=== PATIENT | female | born 1990 | race Caucasian/White ===

== ENCOUNTER 2024-04-11 09:06 | Inpatient (IN) ==
--- NOTE | 2024-04-11 09:25 | History & Physical Report ---
Date of Service April 11, 2024 Assessment & Plan (1) Supervision of normal first : Plan: No active labor at this time - will monitor at L&D, as has not been on toco long enough to determine. Will keep NPO. History of Present Illness Chief Complaint: r/o labor Primary Care Provider: Gagan Go MD 33yo @ 39 09/30, presented to L&D for evaluation after passing small blood clot at home and leaking fluid. + movement, not sure if she's having contractions. Obesity (BMI between 35-39 @ beginning of ) BMI 37 *Growth US @ 32 wks *Weekly NSTs @ 36wks GDM w/28wk glucola *Begin monthly Growth US's GBS poitive by urine BREECH at 36wks C/S SCHEDULED FOR 04/14/[address] SMALL AND DR. KWON ASSIST Allergies Allergy/AdvReac Type Severity Reaction Status Date / Time No Known Allergies Allergy Verified 04/06/24 09:04 Home Medications Medication Instructions Recorded Confirmed Type Saccharomyces boulardii [Probiotic 1 tab PO UD 09/02/23 04/06/24 History (S.boulardii)] docosahexaenoic acid [ DHA] 1 tab PO DAILY 09/02/23 04/06/24 History 21-iron fu-folic acid 1 tab PO DAILY 09/02/23 04/06/24 History [ Complete] acetone (urine) test (Ketone Urine #50 ea 02/11/24 04/04/24 Rx Test strips) blood-glucose meter (OneTouch #1 ea 02/11/24 04/04/24 Rx Verio Reflect Meter) blood sugar diagnostic (OneTouch #150 ea 03/08/24 04/04/24 Rx Verio test strips) lancets 33 gauge (OneTouch Delica #150 ea 03/08/24 04/04/24 Rx Plus Lancet) Patient History Medical History History of COVID-19 (2020) no hosp; resolved Gestational diabetes Diet controlled History of chicken pox Lyme disease (2019) hx- treated Surgical History S/P wisdom tooth extraction Family History Grandmother (Maternal) Breast cancer Colorectal cancer Grandmother (Paternal) Breast cancer Ovarian cancer Mother Diabetes Other Coronary heart disease Denies family history of Uterine cancer Social History Smoking Status: Never smoker Second Hand Exposure: No; Do You Dip or Chew Tobacco: No; Hx Alcohol Use: No Hx Substance Use: No Preferred Language: [place] Communication Ability: Effective Milk Wagon Driver Required: No Beliefs That Will Affect Care: None marital status: marital status details: Nixon Roque (35) [phone] Current Living Situation: Spouse Current Living Situation Comment: lives with spouse current occupational status: employed current occupation: [employer] Feels Safe at Home: Yes Assistive Devices: Contacts and Glasses Review of Systems All systems reviewed & are unremarkable except as noted in HPI & below Physical Exam Physical Exam: FHT Cat 1 [place] rare SVE FT/50/-2 - difficult exam sterile spec exam: no leaking, no pooling, no valsalva, neg nitrizine, not enough fluid for ferning slide. Limited bedside ultrasound - Breech, adequate appearing amniotic fluid - 3cm in one quadrant (others not measured) Constitutional: WD/WN, vitals as above Respiratory: normal respiratory effort, lungs clear to auscultation no respiratory distress Cardiovascular: Rate/Rhythm: regular rate and regular rhythm Gastrointestinal (Abdomen): Inspection/Auscultation: abdomen normal to inspection Percussion/Palpation: abdomen soft; abdomen nontender Gravid. No s/s chorio or abruption. Skin: no rashes, warm and dry Psychiatric: A+Ox3, euthymic affect Results & Data Vital Signs (Past 12 Hours) Vital Signs Pulse BP 04/11/24 09:11 122 H 133/80 Coding Level of Care Code None Diagnoses Supervision of normal first Z34.00
--- NOTE | 2024-04-11 12:04 | History & Physical Bridge Note ---
Date of Service April 11, 2024 History & Physical Bridge Note I have examined the patient, reviewed the History & Physical and in the interval since the performance of the History & Physical I have noted the following changes of clinical significance: no changes noted. FHT Cat 1 tracing, toco difficult to monitor contractions - no labor pattern, however uterine irritable with high frequency/low amplitude activity. Offered patient to perform section today. She agreed - she'd prefer to not wait until , as she is already 39 3/7 today and nervous she will go into labor prior to her scheduled date. We reviewed informed consent, questions answered. Will plan for section today.
[2024-04-11 13:00] LABS: Hematocrit (blood only) 39.4 % (37.0-47.0); Hemoglobin 13.2 g/dl (12.0-16.0); Mean Corpuscular Hemoglobin 28.7 pg (25.0-34.0); Mean Corpuscular Hgb Conc 33.5 g/dL (32.0-36.0); Mean Corpuscular Volume 85.7 fL (80.0-100.0); Mean Platelet Volume 11.4 fL (9.4-12.4); Platelet Count 280 K/uL (130-400); RDW Coefficient of Variation 14.3 % (11.5-14.5); RDW Standard Deviation 44.4 fL (36.4-46.3); White Blood Count 11.86 K/ul (4.8-10.8)
[2024-04-11] MEDS: LACTATED RINGER'S 1,000 ML IV SCH ×2 (13:19→14:17)
[2024-04-11] MEDS: ACETAMINOPHEN 500 MG TAB PO SCH (16:31)
[2024-04-11] MEDS: ceFAZolin 3000MG 3,000 MG/72.5 ML BAG IV SCH (17:03)
[2024-04-11] MEDS ORDERED: MoRPHine SULFATE PF 1 MG/ML 10 ML AMP/VIAL ONE (17:18)
[2024-04-11] MEDS ORDERED: NALBUPHINE HCL INJ 10 MG/ML AMP IV PRN (17:45)
[2024-04-11] MEDS ORDERED: SODIUM CHLORIDE 0.9% 1,000 ML IV SCH (17:45)
[2024-04-11] MEDS ORDERED: MoRPHine SULFATE 2 MG/ML CARP IV PRN (17:45)
[2024-04-11] MEDS ORDERED: LACTATED RINGER'S 500 ML IV PRN (17:45)
[2024-04-11] MEDS ORDERED: ONDANSETRON INJ 2 MG/ML 2 ML VIAL IV PRN ×2 (17:45→18:45)
[2024-04-11] MEDS ORDERED: ePHEDrine sulfate 50 MG/ML AMP IV PRN (17:45)
[2024-04-11] MEDS ORDERED: NO NARCOTICS OR SEDATIVES SCH (17:45)
[2024-04-11] MEDS ORDERED: MEPERIDINE HCL 25 MG/ML CARP/VIAL IV PRN (17:45)
[2024-04-11] MEDS ORDERED: HYDROmorphone INJ 0.5 MG/0.5 ML SYR IV PRN (17:45)
[2024-04-11] MEDS ORDERED: DC INTRASPINAL MORPHINE SCH (17:45)
[2024-04-11] MEDS ORDERED: MoRPHine SULFATE PF 1 MG/ML 10 ML AMP/VIAL INT SPINAL ONE (17:45)
[2024-04-11] MEDS ORDERED: NALOXONE HCL 0.4 MG/1 ML VIAL/CARP IV PRN (17:45)
[2024-04-11] MEDS ORDERED: DROPERIDOL 5 MG/2 ML VIAL IV PRN (17:45)
[2024-04-11] MEDS ORDERED: NALOXONE HCL 1 MG in SODIUM CHLORIDE 0.9% 1,000 ML IV PRN (17:45)
[2024-04-11] MEDS ORDERED: KETOROLAC 30 MG/ML VIAL IV PRN (17:45)
[2024-04-11] MEDS ORDERED: diphenhydrAMINE 50 MG/ML VIAL IV PRN (17:45)
[2024-04-11] MEDS ORDERED: NALOXONE HCL 0.08 MG in SYRINGE 1.8 ML IV PRN (17:45)
[2024-04-11] MEDS: CITRIC ACID/SODIUM CITRATE 15 ML UDC PO SCH (17:54)
[2024-04-11] MEDS ORDERED: PHENYLEPHRINE HCL 25 MG/250 ML NSS IV ONE (18:14)
[2024-04-11] MEDS ORDERED: OXYTOCIN 10 UNITS/ML VIAL ONE (18:14)
[2024-04-11 18:30] LABS: Base Excess Cord Arterial Bld -3.8 mEq/L (-9-1.8); Base Excess Cord Venous Blood -3.7 mEq/L (-7.7-1.9); CO2 Cord Arterial Blood 61 mmHg (39.1-73.5); Cord Venous Blood HCO3 24 mmol/L (18.4-26.8); Cord Venous Blood PCO2 50 mmHg (30.4-57.2); Cord Venous Blood PO2 < 20 mmHg (14.1-43.3); Cord Venous Blood pH 7.28 (7.20-7.44); HCO3 Cord Arterial Blood 25 mmol/L (19.7-28.5); O2 Saturation Cord Venous Bld < 60.0 % (<68); Oxygen Sat Cord Arterial Blood < 60.0 % (<60); PO2 Cord Arterial Blood < 20 mmHg (4.1-31.7); pH Cord Arterial Blood 7.22 (7.1-7.38)
--- NOTE | 2024-04-11 18:43 | Operative Report ---
Post Operative Report Pre & Post Diagnosis Operation Date: 04/11/24 15:00 Pre-Op Diagnosis: Breech Post-Op Diagnosis: Same;Delivery of a live female child at 1745 I identified the patient and participated in the time-out.: Yes Procedure Operation Date: 04/11/24 15:00 Actual Procedures p Primary low transverse Section in LD(Bilateral) - Saniya Lanza DO Surgeon Saniya Lanza DO [employer] Dr Berry, PGY1 Quantitative Blood Loss (QBL) 484 Findings Consistent with Post-Op Diagnosis Viable female , Apgars 9/9. Weight 8#11oz. Normal appearing uterus, tubes, ovaries. Specimens placenta, cord blood, cord gas Drains ham clear yellow Anesthesia Type Spinal Complications none Disposition Accompanied Patient To Recovery: Yes Indications 33yo @ 39 3/7, breech presentation Description of Procedure The patient was seen in her labor and delivery room, risks benefits and alternat petr to surgery were reviewed. Informed consent obtained. Questions were answered. She was taken to the operating room, spinal anesthesia was administered. She was then prepared and draped in the usual sterile fashion in the supine position with a leftward tilt. Timeout was confirmed. A Pfannenstiel skin incision was made with a scalpel, and carried through to the underlying layer of fascia. Fascia was nicked at midline, and this incision was extended bilaterally. The superior aspect of the fascial incision was grasped with Lloyd clamps x2, elevated off the underlying rectus abdominis muscles, and dissected sharply and bluntly. In similar fashion, the inferior aspect of the fascial incision was dissected. The rectus abdominis muscles were , and the peritoneum was entered b luntly digitally. This was extended bilaterally. The bladder flap was taken down carefully using Metzenbaum scissors. Using a new scalpel, a low transverse uterine incision was created. Clear amnio tic fluid noted. The infant was delivered from a breech presentation. The buttocks delivered, followed by legs, torso. Medial sweep for delivery of arms and delivery of head. Nuchal x 2, easily reduced. Spontaneous cry on the field. The cord was doubly clamped and cut, and the was handed off to the waiting smoke room operator. A segment was retained for cord gases. Cord blood was obtained. The placenta was delivered spontaneously intact. The uterus was exteriorized, and cleared of all clots and debris. The hysterotomy incision was reapproximated using 0 Vicryl in a running locked stitch. A second layer of the same suture was used to imbricate the incision. Posterior uterus was evaluated and normal. The uterus was returned to the abdomen, and gutters were cleared of clots and de bris. Excellent hemostasis was observed. The fascial incision was reapproximated using 0 Vicryl in a running stitch. The subcutaneous tissue was irrigated, and reapproximated using 2-0 plain gut in a running stitch. The skin was reapproximated using 4-0 Vicryl in a running subcuticular stitch. Steri-Strips and a bandage were applied. The patient tolerated the procedure well, and will be taken to the recovery area in stable and good condition. I attest to the content of the Intraoperative Record and any orders documented therein. Any exceptions are noted below. OB Procedure Charges 89385
[2024-04-11] MEDS ORDERED: MAGNESIUM HYDROXIDE SUSP 30 ML UDC PO PRN (18:45)
[2024-04-11] MEDS ORDERED: LACTATED RINGER'S 1,000 ML IV SCH (18:45)
[2024-04-11] MEDS ORDERED: HYDROCORTISONE ACETATE 25 MG SUPP PR PRN (18:45)
[2024-04-11] MEDS ORDERED: CALCIUM CARBONATE 500 MG CHEWABLE TAB PO PRN (18:45)
[2024-04-11] MEDS ORDERED: BENZOCAINE 20% SPRY 85 APPLN/85 GM CAN EXT PRN (18:45)
[2024-04-11] MEDS ORDERED: SENNA 8.6 MG TAB PO PRN (18:45)
[2024-04-11] MEDS ORDERED: DIPHTHER/TETAN/PERTUS Vaccine (Tdap, Adol/Adult) 0.5mL IM ONE (18:45)
--- NOTE | 2024-04-11 20:32 | Anesthesiology Progress Note ---
Date of Service April 11, 2024 Anesthesia Post Procedure Vital Signs Vital Signs: Temp Pulse Resp BP Pulse Ox 04/11/24 20:27 100 04/11/24 20:27 75 04/11/24 20:22 100 04/11/24 20:22 82 04/11/24 20:22 135/67 04/11/24 20:17 100 04/11/24 20:17 72 04/11/24 20:12 100 04/11/24 20:12 77 04/11/24 20:12 127/64 04/11/24 20:07 100 04/11/24 20:07 80 04/11/24 20:02 100 04/11/24 20:02 87 04/11/24 20:02 123/59 L 04/11/24 19:57 100 04/11/24 19:57 88 04/11/24 19:52 100 04/11/24 19:52 88 04/11/24 19:52 132/65 04/11/24 19:47 100 04/11/24 19:47 88 04/11/24 19:45 92 04/11/24 19:45 91 H 04/11/24 19:42 100 04/11/24 19:42 71 04/11/24 19:42 123/62 04/11/24 19:37 100 04/11/24 19:37 73 04/11/24 19:33 18 04/11/24 19:33 18 04/11/24 19:33 71 04/11/24 19:33 124/61 04/11/24 19:32 100 04/11/24 19:32 71 04/11/24 19:27 100 04/11/24 19:27 87 04/11/24 19:23 80 04/11/24 19:23 115/70 04/11/24 19:22 100 04/11/24 19:22 73 04/11/24 19:18 18 04/11/24 19:17 100 04/11/24 19:17 79 04/11/24 19:13 75 04/11/24 19:13 124/69 04/11/24 19:12 100 04/11/24 19:12 74 04/11/24 19:07 99 04/11/24 19:07 93 H 04/11/24 19:03 20 04/11/24 19:02 100 04/11/24 19:02 93 H 04/11/24 19:02 118/66 04/11/24 18:57 100 04/11/24 18:57 92 H 04/11/24 18:53 20 04/11/24 18:53 104 H 04/11/24 18:53 137/61 04/11/24 18:52 100 04/11/24 18:52 96 H 04/11/24 18:47 100 04/11/24 18:47 101 H 04/11/24 18:43 20 04/11/24 18:43 100 H 04/11/24 18:43 169/78 H 04/11/24 18:42 100 04/11/24 18:42 92 H 04/11/24 18:37 100 04/11/24 18:37 100 H 04/11/24 18:33 36.6 C 20 04/11/24 18:33 74 04/11/24 18:33 117/76 04/11/24 18:32 99 04/11/24 18:32 80 04/11/24 15:01 78 04/11/24 15:01 139/71 04/11/24 09:37 37.1 C 20 04/11/24 09:11 122 H 133/80 Transfer of Care Handoff Completed per policy Notes Mental Status: alert / awake / arousable and participated in evaluation Nausea / Vomiting: adequately controlled Pain: adequately controlled Airway Patency, RR, SpO2: stable & adequate BP & HR: stable & adequate Hydration State: stable & adequate Neuraxial Anesthesia: was administered and sensory block is resolving Anesthetic Complications: no major complications apparent and Pt Satisfied with anesthetic care
[2024-04-11] MEDS: OXYTOCIN 30 UNITS/LR 1,003 ML IV SCH (20:36)
[2024-04-11] MEDS ORDERED: SODIUM CHLORIDE 0.9% 250 ML IV PRN (20:52)
[2024-04-11] MEDS: DOCUSATE SODIUM 100 MG CAP PO SCH (22:50)
[2024-04-11] MEDS: SIMETHICONE 80 MG CHEW PO SCH (22:51)
[2024-04-11] MEDS: ACETAMINOPHEN 325 MG TAB PO SCH (22:52)
[2024-04-11] MEDS: IBUPROFEN 600 MG TAB PO SCH (22:52)
[2024-04-12 06:20] LABS: Basophils # (auto) 0.02 K/uL (0.00-0.20); Basophils % (auto) 0.1 %; Eosinophils # (auto) 0.08 K/uL (0.00-0.50); Eosinophils % (auto) 0.6 %; Hematocrit (blood only) 32.2 % (37.0-47.0); Hemoglobin 10.7 g/dl (12.0-16.0); Immature Granulocytes # (auto) 0.12 K/uL (0.01-0.20); Immature Granulocytes % (auto) 0.9 %; Lymphocytes # (auto) 1.89 K/uL (1.20-3.40); Lymphocytes % (auto) 14.1 %; Mean Corpuscular Hemoglobin 28.8 pg (25.0-34.0); Mean Corpuscular Hgb Conc 33.2 g/dL (32.0-36.0); Mean Corpuscular Volume 86.6 fL (80.0-100.0); Mean Platelet Volume 11.3 fL (9.4-12.4); Monocytes # (auto) 0.55 K/uL (0.11-0.59); Monocytes % (auto) 4.1 %; Neutrophils # (auto) 10.77 K/uL (1.40-6.50); Neutrophils % (auto) 80.2 %; Platelet Count 203 K/uL (130-400); RDW Coefficient of Variation 14.1 % (11.5-14.5); RDW Standard Deviation 44.6 fL (36.4-46.3); Red Blood Count 3.72 M/uL (4.20-5.40); White Blood Count 13.43 K/ul (4.8-10.8)
--- NOTE | 2024-04-12 06:53 | Obstetrical Progress Note ---
Date of Service April 12, 2024 Assessment & Plan (1) delivery delivered: Plan: 1st POD Dressing removed: wound healthy Ambulation encouraged. Encourage normal diet: Tolerating well. Admission and Anticipated Discharge Date Admission Date: April 11, 2024 Supervising Physician Co-Signing Physician Notes Resident Physician Supervision Note: I interviewed and examined the patient. Discussed with Dr. Berry and agree with findings and plan as documented in the note. Any exceptions or clarifications are listed here: POD#1 doing well. Continue routine postop care. Documented By: Saniya aLnza DO Subjective 1st POD foll LTCS for Breech No active complain Pain: Mild Ambulation : To Bathroom Lochia: Moderate Gas: Not aware; BS present Breast feeding try; occasional bottle feed Regular Ob diet: tolerating Vitals: Stable Post op Review of Systems Review of Systems: As per HPI Physical Exam Physical Exam: General: Alert and oriented. No acute distress. CV: Regular rate and rhythm. No murmurs. Respiratory: CTA bilaterally. No rhonchi, wheezes, or crackles. No increased work of breathing. Abdomen: Positive bowel sounds. Soft, nontender, and nondistended. Uterus: Fundus firm and palpable few cm below umbilicus. Bandage intact; dry Lower extremities: No deep calf pain. Saima's negative bilaterally. Results & Data Vital Signs (Past 12 Hours) Vital Signs Temp Pulse Pulse Resp BP BP Pulse Ox 04/12/24 06:06 18 98 04/12/24 05:02 18 97 04/12/24 04:00 36.8 C 73 18 111/69 98 04/12/24 04:00 18 98 04/12/24 03:03 18 98 04/12/24 02:02 18 99 04/12/24 01:03 18 98 04/12/24 00:00 18 97 04/11/24 23:00 18 98 04/11/24 22:45 04/11/24 22:45 36.7 C 89 18 117/73 98 04/11/24 22:00 18 99 04/11/24 20:57 100 04/11/24 20:57 83 04/11/24 20:52 100 04/11/24 20:52 76 04/11/24 20:47 100 04/11/24 20:47 73 04/11/24 20:42 100 04/11/24 20:42 77 04/11/24 20:37 100 04/11/24 20:37 85 04/11/24 20:33 36.9 C 18 04/11/24 20:33 98 H 04/11/24 20:33 133/68 04/11/24 20:32 100 04/11/24 20:32 84 04/11/24 20:27 100 04/11/24 20:27 75 04/11/24 20:22 100 04/11/24 20:22 82 04/11/24 20:22 135/67 04/11/24 20:17 100 04/11/24 20:17 72 04/11/24 20:12 100 04/11/24 20:12 77 04/11/24 20:12 127/64 04/11/24 20:07 100 04/11/24 20:07 80 04/11/24 20:03 18 04/11/24 20:02 100 04/11/24 20:02 87 04/11/24 20:02 123/59 L 04/11/24 19:57 100 04/11/24 19:57 88 04/11/24 19:52 100 04/11/24 19:52 88 04/11/24 19:52 132/65 04/11/24 19:47 100 04/11/24 19:47 88 04/11/24 19:45 92 04/11/24 19:45 91 H 04/11/24 19:42 100 04/11/24 19:42 71 04/11/24 19:42 123/62 04/11/24 19:37 100 04/11/24 19:37 73 04/11/24 19:33 18 04/11/24 19:33 18 04/11/24 19:33 71 04/11/24 19:33 124/61 04/11/24 19:32 100 04/11/24 19:32 71 04/11/24 19:27 100 04/11/24 19:27 87 04/11/24 19:23 80 04/11/24 19:23 115/70 04/11/24 19:22 100 04/11/24 19:22 73 04/11/24 19:18 18 04/11/24 19:17 100 04/11/24 19:17 79 04/11/24 19:13 75 04/11/24 19:13 124/69 04/11/24 19:12 100 04/11/24 19:12 74 04/11/24 19:07 99 04/11/24 19:07 93 H 04/11/24 19:03 20 04/11/24 19:02 100 04/11/24 19:02 93 H 04/11/24 19:02 118/66 04/11/24 18:57 100 04/11/24 18:57 92 H 04/11/24 18:53 20 04/11/24 18:53 104 H 04/11/24 18:53 137/61 04/11/24 18:52 100 04/11/24 18:52 96 H O2 Del Method 04/12/24 06:06 04/12/24 05:02 04/12/24 04:00 Room Air 04/12/24 04:00 04/12/24 03:03 04/12/24 02:02 04/12/24 01:03 04/12/24 00:00 04/11/24 23:00 04/11/24 22:45 Room Air 04/11/24 22:45 Room Air 04/11/24 22:00 04/11/24 20:57 04/11/24 20:57 04/11/24 20:52 04/11/24 20:52 04/11/24 20:47 04/11/24 20:47 04/11/24 20:42 04/11/24 20:42 04/11/24 20:37 04/11/24 20:37 04/11/24 20:33 04/11/24 20:33 04/11/24 20:33 04/11/24 20:32 04/11/24 20:32 04/11/24 20:27 04/11/24 20:27 04/11/24 20:22 04/11/24 20:22 04/11/24 20:22 04/11/24 20:17 04/11/24 20:17 04/11/24 20:12 04/11/24 20:12 04/11/24 20:12 04/11/24 20:07 04/11/24 20:07 04/11/24 20:03 04/11/24 20:02 04/11/24 20:02 04/11/24 20:02 04/11/24 19:57 04/11/24 19:57 04/11/24 19:52 04/11/24 19:52 04/11/24 19:52 04/11/24 19:47 04/11/24 19:47 04/11/24 19:45 04/11/24 19:45 04/11/24 19:42 04/11/24 19:42 04/11/24 19:42 04/11/24 19:37 04/11/24 19:37 04/11/24 19:33 04/11/24 19:33 04/11/24 19:33 04/11/24 19:33 04/11/24 19:32 04/11/24 19:32 04/11/24 19:27 04/11/24 19:27 04/11/24 19:23 04/11/24 19:23 04/11/24 19:22 04/11/24 19:22 04/11/24 19:18 04/11/24 19:17 04/11/24 19:17 04/11/24 19:13 04/11/24 19:13 04/11/24 19:12 04/11/24 19:12 04/11/24 19:07 04/11/24 19:07 04/11/24 19:03 04/11/24 19:02 04/11/24 19:02 04/11/24 19:02 04/11/24 18:57 04/11/24 18:57 04/11/24 18:53 04/11/24 18:53 04/11/24 18:53 04/11/24 18:52 04/11/24 18:52 Resident Activity Tracking Resident Involvement: Resident Care Provided Care Provided: OB Delivery
[2024-04-12] MEDS: PRENATAL VITAMIN 1 TAB PO SCH (10:53)
[2024-04-12] MEDS: FERROUS SULFATE 325 MG TAB PO SCH (10:54)
[2024-04-12] MEDS ORDERED: diphenhydrAMINE 50 MG/ML VIAL IV PRN (11:45)
[2024-04-12] MEDS ORDERED: oxyCODONE HCL IR 5 MG TAB (IMMEDIATE RELEASE) PO PRN (11:45)
[2024-04-12] MEDS ORDERED: diphenhydrAMINE Capsule 25 MG CAP PO PRN (11:45)
[2024-04-12] MEDS ORDERED: HYDROmorphone INJ 0.5 MG/0.5 ML SYR IV PRN (11:45)
[2024-04-12] MEDS ORDERED: PROMETHAZINE 12.5 MG/50.5 ML BAG IV PRN (11:45)
[2024-04-12] MEDS: bisacodyL 5 MG TABEC PO SCH (20:35)
[2024-04-12 22:51] VITALS: RESP 18; TEMP 98.1
[2024-04-13 06:59] LABS: Hematocrit (blood only) 31.5 % (37.0-47.0); Hemoglobin 10.2 g/dl (12.0-16.0)
--- NOTE | 2024-04-13 07:25 | Obstetrical Progress Note ---
Date of Service April 13, 2024 Assessment & Plan (1) delivery delivered: Plan: 2nd POD Wound healthy Ambulation encouraged. Encourage normal diet: Tolerating well. Discharge today Admission and Anticipated Discharge Date Admission Date: April 11, 2024 Supervising Physician Co-Signing Physician Notes Resident Physician Supervision Note: I was present with [Name of resident] during the history and exam. I discussed the case with the resident and agree with the findings and plan as documented in the note. Any exceptions or clarifications are listed here: [None] Documented By: Julia Fermin MD, FACOG Subjective 2nd POD foll LTCS for Breech No active complain Pain: Mild Ambulation done Lochia: Mild Passed gas ; feels better in belly Breast feeding try; occasional bottle feed Regular Ob diet: tolerating Vitals: Stable Post op Review of Systems Review of Systems: As per HPI Physical Exam Physical Exam: General: Alert and oriented. No acute distress. CV: Regular rate and rhythm. No murmurs. Respiratory: CTA bilaterally. No rhonchi, wheezes, or crackles. No increased work of breathing. Abdomen: Positive bowel sounds. Soft, nontender, and nondistended. Uterus: Fundus firm and palpable few cm below umbilicus. Bandage intact; dry Lower extremities: No deep calf pain. Saima's negative bilaterally. Results & Data Vital Signs (Past 12 Hours) Vital Signs Temp Pulse Resp BP Pulse Ox O2 Del Method 04/13/24 00:35 36.7 C 78 18 111/71 97 Room Air 04/12/24 19:27 36.7 C 76 18 106/71 97 Room Air Resident Activity Tracking Resident Involvement: Resident Care Provided Care Provided: Adult Hospital Medicine and OB Delivery
[2024-04-13 11:16] VITALS: BP 118/75; PULSE 92; O2SAT 98
[2024-04-13] MEDS ORDERED: bisacodyL 10 MG SUPP PR PRN (18:39)
[2024-04-13] MEDS ORDERED: IBUPROFEN 600 MG TAB PO PRN (18:39)
[2024-04-13] MEDS ORDERED: ACETAMINOPHEN 325 MG TAB PO PRN (18:39)
--- NOTE | 2024-04-15 17:53 | Discharge Summary ---
Date of Service April 15, 2024 Admission HPI Per Admitting Provider 33yo @ 39 09/30, presented to L&D for evaluation after passing small blood clot at home and leaking fluid. + movement, not sure if she's having contractions. Obesity (BMI between 35-39 @ beginning of ) BMI 37 *Growth US @ 32 wks *Weekly NSTs @ 36wks GDM w/28wk glucola *Begin monthly Growth US's GBS poitive by urine BREECH at 36wks C/S SCHEDULED FOR 04/14/[address] SMALL AND DR[address] KWON ASSIST Admission Exam (Per Admitting) Constitutional WD/WN, vitals as above Respiratory normal respiratory effort, lungs clear to auscultation no respiratory distress Cardiovascular Rate/Rhythm: regular rate and regular rhythm Gastrointestinal (Abdomen) Inspection/Auscultation: abdomen normal to inspection Percussion/Palpation: abdomen soft; abdomen nontender Skin no rashes, warm and dry Psychiatric A+Ox3, euthymic affect Discharge Data Consultations 04/11/24 12:35 Consult Anesthesiology Stat Procedures Performed Operation Date: 04/11/24 15:00 Actual Procedures p Section in LD(Bilateral) - Saniya Lanza DO Hospital Course (1) delivery delivered: 2nd POD Wound healthy Ambulation encouraged. Encourage normal diet: Tolerating well. Discharge today Coding Level of Care Code None Diagnoses delivery delivered O82
== END 2024-04-13 16:05 | disposition home or self-care (01) | DRG 788 ==
LOC: OPB 09:06 → 4S1 09:07 → 4E2 21:20
DX: Z83.3 Family history of diabetes mellitus; O99.214 Obesity complicating childbirth; E66.9 Obesity, unspecified; Z37.0 Single live birth; Z3A.39 39 weeks gestation of pregnancy; O24.420 Gestational diabetes mellitus in childbirth, diet controlled; O32.1XX0 Maternal care for breech presentation, not applicable or unspecified